=== PATIENT | female | born 1955 | race Caucasian/White ===

== ENCOUNTER 2022-01-06 14:41 | Outpatient (CLI) | payer MEDICARE | END 2022-01-06 14:42 | disposition home or self-care (01) | LOC: CSHMAMMO 14:41 | PROVIDERS: ATTEND Family Medicine | DX: Z12.31 Encounter for screening mammogram for malignant neoplasm of breast (principal); Z13.820 Encounter for screening for osteoporosis; M15.9 Polyosteoarthritis, unspecified; M51.36 Other intervertebral disc degeneration, lumbar region; M85.852 Other specified disorders of bone density and structure, left thigh | CPT/HCPCS: 77063; 77067; 77080 ==

== ENCOUNTER 2023-09-12 12:07 | Outpatient (CLI) | payer OTHER | END 2023-09-12 12:08 | disposition home or self-care (01) | LOC: CSHMAMMO 12:07 | PROVIDERS: ATTEND Family Medicine | DX: Z12.31 Encounter for screening mammogram for malignant neoplasm of breast (principal) | CPT/HCPCS: 77063; 77067 ==